=== PATIENT | male | born 2000 | race African-American/Black ===

== ENCOUNTER 2024-02-07 14:03 | Outpatient (AMB) | payer OTHER, SELFPAY ==
--- NOTE | 2024-02-07 14:07 | MHC.PC.OV ---
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 Allergies No Known Allergies Allergy (Verified 02/07/24 14:14) Medication List - Last Reconciled 02/07/24 by Enid Fair MD No Known Home Meds Tobacco use date assessed: 02/07/24 Dental Screening Dental Screen Date: 02/07/24 Did you have a dental visit in the last 12 months?: Yes Did you have a dental problem in the last 6 months where you did not have access to dental care?: No Was dental information given to patient?: Patient has dentist HPI BUSINESS AREA MANAGER- Annual HPI Details Patient is 23-year-old gentleman came in today for physical examination Offer no complaints other than slight discolored rash in the back On examination that is tinea versicolor, I have sent medication for that Blood pressure is slightly 134/88, I would recommend to observe no salt diet And continue monitoring blood pressure every now and Immunizations are up-to-date as per patient Lab order placed to be done fasting [facility] Social History Housing: House Patient Tobacco Use Status: Never used Tobacco e-Cigarette/Vaping Use: Never Used service: No Current occupational status: employed Cognitive needs: No Hearing needs: No Vision needs: Yes Questionnaire PHQ-9 Over the last 2 weeks, how often have you been bothered by any of the following problems? 1. Little interest or pleasure in doing things: not at all 2. Feeling down, depressed, or hopeless: not at all 3. Trouble falling or staying asleep, or sleeping too much: more than half the days 4. Feeling tired or having little energy: several days 5. Poor appetite or overeating: nearly every day 6. Feeling bad about yourself - or that you are a failure or have let yourself or your family down: nearly every day 7. Trouble concentrating on things, such as reading the newspaper or watching television: not at all 8. Moving or speaking so slowly that other people could have noticed. Or the opposite - being so fidgety or restless that you have been moving around a lot more than usual: not at all 9. Thoughts that you would be better off or of hurting yourself in some way: not at all Total score: 9 Depression Screening Interpretation: Negative Depression Screening Done: Yes [id number] - PHQ-9 Billing: Yes Source: Developed by Drs. Maxi Gracia, Candelaria Graham, Gucci Dorsey and colleagues, with an educational brennon from [employer]. Thrive Questionnaire Date Thrive assessed: 02/07/24 I am a: Patient What is your living situation today?: I have a steady place to live Within the past 12 months, did the food you bought not last and you didn't have the money to get more?: Never true Within the past 12 months, did you worry whether your food would run out before you got money to buy more?: Never true Do you have trouble paying for medicines?: No Do you have trouble getting transportation to medical appointments?: No Do you have trouble paying your heating and electricity bill?: No Do you have trouble taking care of your child, family member or friend?: No Do you have trouble with day-to-day activities such as bathing, preparing meals, shopping, managing finances, etc.?: No Are you interested in more education?: Yes Please select the resources that you would like help with: None Currently or been in a relationship where the following occur: No concerns reported THRIVE Score: 0 AUDIT C Alcohol Use Questionnaire (AUDIT-C) 1. How often do you have a drink containing alcohol?: Never 3. How often do you have six or more drinks on one occasion?: Never Total Score: 0 Score Reviewed/Action Taken: Yes MAC-7 AMB Questionnaire MAC-7 Date MAC - 7 assessed: 02/07/24 Feeling nervous, anxious, or on edge: 3 = Nearly every day Not being able to stop or control worryin = Nearly every day Worrying too much about different things: 0 = Not at all Trouble relaxin = Not at all Being so restless that it is hard to sit still: 0 = Not at all Becoming easily annoyed or irritable: 1 = Several days Feeling afraid as if something awful might happen: 0 = Not at all Total MAC-7 score (0-4 normal; 5-9 mild; 10-14 moderate; 15-21 severe): 7 Source: Developed by Drs. Maxi Garcia, Candelaria Graham, Gucci Dorsey and colleagues, with an educational brennon from [employer]. MAC-7 Assessment Billing MAC-7 Assessment Tool: MAC-7 Assessment 85515 Review of Systems Const Denies chills, Denies fever(s) and Denies headache(s) Eyes Denies blurry vision ENT Denies headache(s), Denies nasal discharge, Denies nasal obstruction, Denies odynophagia and Denies sinus pain Card Denies chest pain at rest and Denies chest pain with activity Resp Denies cough and Denies hemoptysis GI Denies diarrhea, Denies odynophagia, Denies vomiting and Denies hematemesis Reports as per HPI Musc Denies abnormal gait Skin/Breast Reports as per HPI Neuro Denies Neuro-related abnormal movements, Denies Abnormal speech present, Denies abnormal gait, Denies headache(s) and Denies Sensory deficit (Neuro) Psych Denies mood swings and Denies paranoia Endo Reports as per HPI Gutierrez/Lymph Reports as per HPI Aller/Immun Reports as per HPI Physical exam (Primary Care) Vital Signs: Last Vital Signs Pulse 94 02/07/24 14:13 BP 134/88 02/07/24 14:13 Pulse Ox 98 02/07/24 14:13 Oxygen Delivery Method Room Air 02/07/24 14:13 PHQ-9: PHQ-9 Score PHQ-9: Total score 9 02/07/24 14:07 Depression Screening Interpretation: Negative Currently or been in a relationship where the following occur: No concerns reported Const General: cooperative, comfortable and no acute distress Orientation/consciousness: patient oriented x3 HENMT Head: Yes normocephalic and Yes atraumatic Eyes General: appearance normal, both eyes and all related structures Pupils: Equal, round and reactive pupils present EOM: EOMs intact bilaterally Neck Neck: Yes supple and No lymphadenopathy Thyroid: Thyroid normal Lymphatic: no lymphadenopathy noted Resp Effort & Inspection: normal respiratory effort and able to speak in complete sentences Auscultation: clear to auscultation bilaterally Cardio Heart sounds: S1 normal heart sound present and S2 normal heart sound present GI Palpation (GI): Soft to palpation and nontender Auscultation: normal bowel sounds General: Yes no CVA tenderness Back/Spine/Pelvis Back: no CVA tenderness Skin General skin exam: elasticity normal and turgor normal Full body images: 1. Discolored patch in the back Neuro General: patient oriented x3 and gait normal Cranial nerves: Yes Equal, round and reactive pupils present Speech: No Abnormal speech present Sensory Exam: No Sensory deficit (Neuro) Coordination: tandem gait normal and Romberg test negative Extrem General: Yes normal exam except as noted and No edema Assessment and Plan Assessment & Plan (1) Encounter for general adult medical examination with abnormal findings: Code(s): Z00.01 - Encounter for general adult medical examination with abnormal findings (2) Tinea versicolor: Code(s): B36.0 - Pityriasis versicolor (3) Prehypertension: Code(s): R03.0 - Elevated blood-pressure reading, without diagnosis of hypertension Plan Patient is 23-year-old gentleman came in today for physical examination Offer no complaints other than slight discolored rash in the back On examination that is tinea versicolor, I have sent medication for that Blood pressure is slightly 134/88, I would recommend to observe no salt diet And continue monitoring blood pressure every now and Immunizations are up-to-date as per patient Lab order placed to be done fasting Orders: Orders Complete Blood Count Auto Diff Today B36.0 - Pityriasis versicolor, R03.0 - Elevated blood-pressure reading, without diagnosis of hypertension, Z00.01 - Encounter for general adult medical examination with abnormal findings Comprehensive [place]. Panel Fast Today B36.0 - Pityriasis versicolor, R03.0 - Elevated blood-pressure reading, without diagnosis of hypertension, Z00.01 - Encounter for general adult medical examination with abnormal findings Vitamin D 25-OH (D2 and D3) Today B36.0 - Pityriasis versicolor, R03.0 - Elevated blood-pressure reading, without diagnosis of hypertension, Z00.01 - Encounter for general adult medical examination with abnormal findings Lipid Panel Today B36.0 - Pityriasis versicolor, R03.0 - Elevated blood-pressure reading, without diagnosis of hypertension, Z00.01 - Encounter for general adult medical examination with abnormal findings TSH reflex Free T4 Today B36.0 - Pityriasis versicolor, R03.0 - Elevated blood-pressure reading, without diagnosis of hypertension, Z00.01 - Encounter for general adult medical examination with abnormal findings UA CC w/rflx Micro + Cult Today B36.0 - Pityriasis versicolor, R03.0 - Elevated blood-pressure reading, without diagnosis of hypertension, Z00.01 - Encounter for general adult medical examination with abnormal findings Medications: New itraconazole must administer with a meal/food 200 mg (2 x 100 mg) PO DAILY 1 day 2 caps 0RF Coding Level of Care Code Est Pt Level 3 (38074) New Pt Prev Care 18-39yr([id number] Diagnoses Encounter for general adult medical examination with abnormal findings Z00.01 Tinea versicolor B36.0 Prehypertension R03.0 Additional Codes MAC-7 Assessment Billing - MAC-7 Assessment Tool: MAC-7 Assessment [id number] ([id number])
[2024-02-07 14:13] VITALS: BP 134/88; PULSE 94; O2SAT 98
== END 2024-02-07 14:23 | disposition home or self-care (01) ==
PROVIDERS: Visit Provider Internal Medicine
DX: Z00.01 Encounter for general adult medical examination with abnormal findings (principal); B36.0 Pityriasis versicolor; R03.0 Elevated blood-pressure reading, without diagnosis of hypertension

== ENCOUNTER → 2024-02-07 14:03 | Outpatient (BNVA) | payer OTHER, SELFPAY | PROVIDERS: Visit Provider Internal Medicine | DX: Z00.01 Encounter for general adult medical examination with abnormal findings (principal); B36.0 Pityriasis versicolor; R03.0 Elevated blood-pressure reading, without diagnosis of hypertension | CPT/HCPCS: 96127 ==